=== PATIENT | male | born 1960 | race Caucasian/White ===

== ENCOUNTER 2020-12-28 07:58 | Emergency (ER) | payer OTHER, SELFPAY ==
[2020-12-28 08:04] VITALS: BP 152/77; PULSE 68; RESP 12; TEMP 36.7; O2SAT 100
--- NOTE | 2020-12-28 08:11 | ECG_ITS ---
Measurements Intervals [place] Rate: 59 P: 98 CA: 156 QRS: 7 QRSD: 100 T: 59 QT: 408 QTc: 406 Interpretive Statements SINUS BRADYCARDIA WITH MARKED SINUS ARRHYTHMIA ATRIAL PREMATURE COMPLEXES MINIMAL Q WAVES- ANTEROLAT/HIGH LAT LEADS BASELINE WANDER- AVF BORDERLINE ECG Electronically Signed On 12-28-2020 11:54:21 [employer] by Estevan Beckett D.O.
--- NOTE | 2020-12-28 08:34 | ED.ABDPAIN ---
HPI - Abdominal Pain General Chief Complaint: Abdominal Pain Stated Complaint: STOMACH PAIN Source: patient Mode of arrival: ambulatory Limitations: no limitations History of Present Illness HPI narrative: Patient is a 60-year-old male who presents complaining of epigastric/upper abdominal pain x2 days. Patient reports pain is constant. Patient reports pain level is 10/10. He reports he has been unable to sleep nor eat. He reports he is frequently on a keto diet intermittently for many years. He moderate nausea without vomiting. Denies diarrhea. He denies significant medical history. He denies taking any [id number] medications for relief at this time. MD elicited complaint: abdominal pain Pertinent past history: none Related Data Home Medications Medication Instructions Recorded Confirmed atorvastatin 12/28/20 Allergies Allergy/AdvReac Type Severity Reaction Status Date / Time No Known Allergies Allergy Unknown Unverified 12/28/20 08:04 Review of Systems Review of Systems: Narrative: CONSTITUTIONAL: Denies fever, chills, or sweats. EYES: Denies visual changes, redness, or discharge. ENT: Denies rhinorrhea, congestion, sore throat, or otalgia. CARDIOVASCULAR: Denies chest pain, palpitations, or edema. RESPIRATORY: Denies cough or dyspnea. GASTROINTESTINAL: Reports upper abdominal pain and nausea GENITOURINARY: Denies dysuria or hematuria. SKIN: Denies rash or itching. MUSCULOSKELETAL: Denies back pain, joint pain, or myalgia. NEUROLOGIC: Denies headache, numbness, dizziness, or weakness. PSYCHIATRIC: Denies anxiety or depression. COUNT INCLUDES THE [facility] Past Medical History Medical History (Updated 12/28/20 @ 08:53 by TIGRE Elizondo) High cholesterol Larynx polyp Mass of esophagus Patient reports radiation treatment 04/2020 Family History Family History (Updated 12/28/20 @ 08:53 by TIGRE Elizondo) Other Hypertension Social History Social History (Updated 12/28/20 @ 08:54 by TIGRE Elizondo) Smoking status: Former smoker Tobacco type: cigars Alcohol intake: current Substance use: never Living arrangements: with family Occupation/Education: occupation Gender identity (if verbalized by the patient): Male Comments At the time of signature, I have reviewed and agree with nursing past medical, surgical, social, and family history unless otherwise noted. Please see nursing chart for further information. There is no relevant family history pertinent to the presenting complaint. Exam Narrative: Exam Narrative: GENERAL: Well-appearing, well-nourished, and in no acute distress. HEAD: Normocephalic, atraumatic. EYES: No redness or drainage. ENT: Mucous membranes pink and moist. CHEST: No respiratory distress. Clear to auscultation. HEART: Regular rate and rhythm. No murmur appreciated. GI: Soft, upper abdominal tenderness with palpation, slight distention. MUSCULOSKELETAL: No bony tenderness. EXTREMITIES: Normal range of motion. SKIN: Warm, dry, no rash. NEURO: No focal deficits. Alert and oriented x3. Gait steady. PSYCH: Normal affect. No signs of depression or anxiety. Course Course Emergency Course: EKG is normal in urgent care. Discussed with patient the need for further diagnostic testing at this time. Patient requesting transfer to [facility] as he reports all his doctors are there. Patient refuses EMS transfer. Discussed with patient the need to go immediately to the emergency department. Patient agrees with plan of care. Vital Signs Vital signs: Vital Signs Temperature 36.7 C 12/28/20 08:04 Pulse Rate 68 12/28/20 08:04 Respiratory Rate 12 12/28/20 08:04 Blood Pressure 152/77 H 12/28/20 08:04 Pulse Oximetry 100 12/28/20 08:04 Temperature 36.7 C 12/28/20 08:04 Pulse Rate 68 12/28/20 08:04 Respiratory Rate 12 12/28/20 08:04 Blood Pressure 152/77 H 12/28/20 08:04 Pulse Oximetry 100 12/28/20 08:04 Reviewed. Satinder
--- NOTE | 2020-12-28 08:35 | PC.NURSE ---
0830: after exam by provider, patient will go to [facility] for further evaluation. Provider called report to facility and spoke to MARY Rosales.
== END 2020-12-28 08:36 | disposition short-term general hospital (02) ==
PROVIDERS: Emergency Provider Nurse Practitioner
DX: R10.13 Epigastric pain (principal); Z87.891 Personal history of nicotine dependence; E78.00 Pure hypercholesterolemia, unspecified
CPT/HCPCS: 93005; 99213; G0463